=== PATIENT | female | born 1955 ===

== ENCOUNTER 2022-09-10 01:40 | Emergency (ER) | payer OTHER ==
[2022-09-10] MEDS ORDERED: HYDROCODONE/APAP 10/325 TAB ONE (02:31)
[2022-09-10] MEDS ORDERED: TETANUS & DIPHTHERIA TOX,ADULT 0.5 ML VIAL ONE (02:37)
--- NOTE | 2022-09-10 04:00 | ER ---
Nurse's Notes [facility] Name: Mirlande Tyson Age: 67 yrs Sex: Female : 1955 Arrival Date: 09/10/2022 Time: 01:42 Bed 16 Private MD: Diagnosis: Fall on same level, unspecified;Contusion of left elbow;Contusion of right elbow;Contusion of right knee Presentation: 09/10 01:42 Chief complaint: EMS states: they were toned out for report of pt having fallen out of bb bed while being changed at the skilled nursing [facility], pt did not have LOC but is c/o right knee pain. Care prior to arrival: None. Mechanism of Injury: Fall approximately 2.5 feet. Trauma event details: Injury occurred in the [facility], Injury occurred: in an institution. Injury occurred: September 10, 2022. 01:42 Acuity: ALEXA 3 bb 01:42 Method Of Arrival: EMS: [facility] bb 01:46 Coronavirus screen: At this time, the client does not indicate any symptoms associated bb with coronavirus-19. Ebola Screen: No symptoms or risks identified at this time. Initial Sepsis Screen: Does the patient meet any 2 criteria? No. Patient's initial sepsis screen is negative. Does the patient have a suspected source of infection? No. Patient's initial sepsis screen is negative. Risk Assessment: Do you want to hurt yourself or someone else? Patient reports no desire to harm self or others. Onset of symptoms was September 10, 2022. Triage Assessment: 02:00 General: Appears in no apparent distress. Behavior is appropriate for age. ke1 Trauma Activation: Physician: ED Physician; Name: vannessa; Notified At: 01:40; Arrived At: Physician: General Surgeon; Name: ; Notified At: 01:40; Arrived At: Physician: Radiology; Name: ; Notified At: 01:40; Arrived At: Physician: Respiratory; Name: ; Notified At: 01:40; Arrived At: Physician: Lab; Name: ; Notified At: 01:40; Arrived At: Historical: - Allergies: 01:46 Cephalexin; bb 01:46 Codeine; bb 01:46 PENICILLINS; bb 01:46 Prochlorperazine; bb - Home Meds: 01:52 Aricept Oral [Active]; Artificial Tears Opht [Active]; benztropine Oral [Active]; bb Cymbalta oral [Active]; Docusate Sodium Oral [Active]; Aspirin EC Oral [Active]; Farxiga oral [Active]; Ferrous Sulfate Oral [Active]; fluticasone propionate nasal [Active]; Ibuprofen Oral [Active]; latanoprost ophthalmic (eye) [Active]; Magnesium Oxide Oral [Active]; meloxicam oral [Active]; Metformin Oral [Active]; Multiple Vitamins oral [Active]; Namenda oral [Active]; [place] Oral [Active]; Risperdal Oral [Active]; Simethicone Oral [Active]; Spironolactone Oral [Active]; Sumatriptan Sub-Q [Active]; Topamax Oral [Active]; Tramadol Oral [Active]; Trazodone Oral [Active]; zinc lozenge [Active]; - PMHx: 01:46 Alzheimers; Anemia; Anxiety; Chronic pain; Dementia; Depression; Diabetes - IDDM; GERD; bb Hypertension; lymphedema; Renal Disease; Schizophrenia; - Immunization history: Last tetanus immunization: unknown. - Social history:: Smoking status: Patient denies any tobacco usage or history of. - Family history:: not pertinent. Screenin:42 Abuse screen: Denies threats or abuse. Tuberculosis screening: No symptoms or risk bb factors identified. 02:00 Nutritional screening: No deficits noted. Fall Risk Fall in past 12 months (25 points). ke1 No secondary diagnosis (0 pts). No IV (0 pts). Ambulatory Aid- None/Bed Rest/Nurse Assist (0 pts). Gait- Normal/Bed Rest/Wheelchair (0 pts) Mental Status- Oriented to own ability (0 pts). Total Rothman Fall Scale indicates Low Risk Score (25-44 pts). Fall prevention measures have been instituted. Side Rails Up X 2 Frequent Obs/Assesments occuring. Primary Survey: 01:42 NO uncontrolled hemorrhage observed. A: The client is awake and alert. The airway is bb patent. Breathing/Chest: Spontaneous respiratory effort, equal unlabored respirations, breath sounds clear bilaterally, regular pattern, symmetrical chest rise and fall. Circulation: No external hemorrhage present. Regular and strong central pulse, skin warm/dry/normal color. Disability Pupils are equal, round, reactive to light and accommodation. Exposure/Environment: All clothing and personal items were removed. Forensic evidence collection is not deemed to be indicated at this time. Items placed in patient belonging bag. 02:00 Reassessment Breathing: Respiratory effort Spontaneous Unlabored Breath sounds Clear ke1 Respiratory pattern Regular. Secondary Survey: 01:42 HEENT: No deficits noted. Gastrointestinal: No deficits noted. : No deficits noted. bb Musculoskeletal: Reports pain in right knee. Assessment: 02:00 Pain: Complains of pain in R knee Pain currently is 6 out of 10 on a pain scale. at ke1 worst was 6 out of 10 on a pain scale. level that patient reports is acceptable is 1 out of 10 on a pain scale. 04:13 Reassessment: called skilled nursing, no answer. ke1 04:23 Reassessment: report given to nurse ghosh, asking us to take care of transport, I asked ke1 to speak to a charge nurse, i was put on hold for about 20 mn. 04:42 Reassessment: intermediate called back and they will provide transportation ETA 30 mn ke1 to an hour. Vital Signs: 01:42 BP 173 / 85; Pulse 77; Resp 16 S; Pulse Ox 99% on R/A; Weight 113.4 kg (R); Height 5 bb ft. 7 in. (170.18 cm) (R); Pain 10/10; 02:57 BP 133 / 54; Pulse 71; Resp 16; Temp 97.8; Pulse Ox 96% on R/A; Pain 2/10; ke1 03:13 Pain 0/10; ke1 04:12 BP 128 / 52; Pulse 71; Resp 17; Temp 97.6; Pulse Ox 96% ; Pain 0/10; ke1 01:42 Body Mass Index 39.16 (113.40 kg, 170.18 cm) bb August Coma Score: 01:42 Eye Response: spontaneous(4). Verbal Response: oriented(5). Motor Response: obeys bb commands(6). Total: 15. Trauma Score (Adult): 01:42 Eye Response: spontaneous(1); Verbal Response: oriented(1); Motor Response: obeys bb commands(2); Systolic BP: > 89 mm Hg(4); Respiratory Rate: 10 to 29 per min(4); Ailey Score: 15; Trauma Score: 12 ED Course: 01:42 Patient arrived in ED. bb 01:42 Jordy Benito MD is Attending Physician. rt 01:42 Patient has correct armband on for positive identification. Bed in low position. Call bb light in reach. Side rails up X 1. 01:42 Patient maintains SpO2 saturation greater than 95% on room air. bb 01:44 Triage completed. bb 01:46 Patient placed in an exam room, on a stretcher, on pulse oximetry. bb 01:50 De Sharp, HERNÁN is Primary Nurse. ke1 02:00 Thermoregulation: warm blanket given to patient. ke1 02:49 Elbow Left 3 View XRAY In Process Unspecified. EDMS 02:49 Elbow Right 3 View XRAY In Process Unspecified. EDMS 02:49 Knee Right 3 View XRAY In Process Unspecified. EDMS 06:15 No provider procedures requiring assistance completed. ke1 07:02 Patient did not have IV access during this emergency room visit. ke1 Administered Medications: 02:30 Drug: Josephine (HYDROcodone-acetaminophen) 10 mg-325 mg 1 tabs Route: PO; ke1 03:13 Follow up: Pain 0/10 Adult ke1 02:40 Drug: Tetanus-Diphtheria Toxoid Adult 0.5 ml {Preparer Samples And Repairs: [employer]. Exp: ke1 03/09/2024. Lot #: [id number]. } Route: IM; Site: left deltoid; 03:13 Follow up: Response: No adverse reaction ke1 Medication: 03:00 Vaccine Information Statement (VIS) provided today. Questions and/or concerns ke1 addressed. VIS edition date: September 10, 2022. Intake: 06:16 PO: 0ml; Total: 0ml. ke1 Output: 06:16 Urine: 0ml; Total: 0ml. ke1 Outcome: 03:59 Discharge ordered by . rt 06:16 due to transportation back to nursing homePatient's length of stay extended due to ke1 06:54 Discharged to skilled nursing. Report called to davina ke1 07:02 Condition: good ke1 07:02 Discharge instructions given to patient, EMS, [facility] 07:02 Patient left the ED. ke1 Signatures: Dispatcher [employer] Urvashi Guzman RN RN bb De Sharp RN RN ke1 Jordy Benito MD MD rt
--- NOTE | 2022-09-10 04:00 | EDPHYS ---
Physician Documentation [facility] Name: Mirlande Tyson Age: 67 yrs Sex: Female : 1955 Arrival Date: 09/10/2022 Time: 01:42 Bed 16 Private MD: ED Physician Jordy Benito HPI: 09/10 02:04 This 67 yrs old Female presents to ER via EMS with complaints of Fall Injury. rt 02:04 Details of fall: The patient fell from a supine position, out of bed. Onset: The rt symptoms/episode began/occurred just prior to arrival. Severity of symptoms: At their worst the symptoms were mild. Patient presents to the ED from custodial with mechanical fall while they were changing the patient, she actually rolled out of bed. She landed onto both of her elbows as well as her right knee. She denies hitting her head or having other injuries. She reports skin tears to the elbows, no other lacerations. Pain is aching nature, nonradiating, no other aggravating alleviating factors.. Historical: - Allergies: 01:46 Cephalexin; bb 01:46 Codeine; bb 01:46 PENICILLINS; bb 01:46 Prochlorperazine; bb - Home Meds: 01:52 Aricept Oral [Active]; Artificial Tears Opht [Active]; benztropine Oral [Active]; bb Cymbalta oral [Active]; Docusate Sodium Oral [Active]; Aspirin EC Oral [Active]; Farxiga oral [Active]; Ferrous Sulfate Oral [Active]; fluticasone propionate nasal [Active]; Ibuprofen Oral [Active]; latanoprost ophthalmic (eye) [Active]; Magnesium Oxide Oral [Active]; meloxicam oral [Active]; Metformin Oral [Active]; Multiple Vitamins oral [Active]; Namenda oral [Active]; [place] Oral [Active]; Risperdal Oral [Active]; Simethicone Oral [Active]; Spironolactone Oral [Active]; Sumatriptan Sub-Q [Active]; Topamax Oral [Active]; Tramadol Oral [Active]; Trazodone Oral [Active]; zinc lozenge [Active]; - PMHx: 01:46 Alzheimers; Anemia; Anxiety; Chronic pain; Dementia; Depression; Diabetes - IDDM; GERD; bb Hypertension; lymphedema; Renal Disease; Schizophrenia; - Immunization history: Last tetanus immunization: unknown. - Social history:: Smoking status: Patient denies any tobacco usage or history of. - Family history:: not pertinent. ROS: 02:04 Constitutional: Negative for fever, chills, and weight loss, Eyes: Negative for injury, rt pain, redness, and discharge, Neck: Negative for injury, pain, and swelling, Cardiovascular: Negative for chest pain, palpitations, and edema, Respiratory: Negative for shortness of breath, cough, wheezing, and pleuritic chest pain, Abdomen/GI: Negative for abdominal pain, nausea, vomiting, diarrhea, and constipation, Back: Negative for injury and pain, Skin: Negative for injury, rash, and discoloration, Neuro: Negative for headache, weakness, numbness, tingling, and seizure, Psych: Negative for depression, anxiety, suicide ideation, homicidal ideation, and hallucinations. 02:04 MS/extremity: Positive for Injury, bruising. Exam: 02:04 Constitutional: This is a well developed, well nourished patient who is awake, alert, rt and in no acute distress. Head/Face: Normocephalic, atraumatic. Eyes: Pupils equal round and reactive to light, extra-ocular motions intact. Lids and lashes normal. Conjunctiva and sclera are non-icteric and not injected. Cornea within normal limits. Periorbital areas with no swelling, redness, or edema. Neck: Trachea midline, no thyromegaly or masses palpated, and no cervical lymphadenopathy. Supple, full range of motion without nuchal rigidity, or vertebral point tenderness. No Meningismus. Chest/axilla: Normal chest wall appearance and motion. Nontender with no deformity. No lesions are appreciated. Cardiovascular: Regular rate and rhythm with a normal S1 and S2. No gallops, murmurs, or rubs. Normal PMI, no JVD. No pulse deficits. Respiratory: Lungs have equal breath sounds bilaterally, clear to auscultation and percussion. No rales, rhonchi or wheezes noted. No increased work of breathing, no retractions or nasal flaring. Abdomen/GI: Soft, non-tender, with normal bowel sounds. No distension or tympany. No guarding or rebound. No evidence of tenderness throughout. Skin: Warm, dry with normal turgor. Normal color with no rashes, no lesions, and no evidence of cellulitis. Neuro: Awake and alert, GCS 15, oriented to person, place, time, and situation. Cranial nerves II-XII grossly intact. Motor strength 5/5 in all extremities. Sensory grossly intact. Cerebellar exam normal. Normal gait. Psych: Awake, alert, with orientation to person, place and time. Behavior, mood, and affect are within normal limits. 02:04 Musculoskeletal/extremity: Skin tear to the right elbow, abrasion to the left elbow, mild tenderness diffusely on both, forage of motion, no swelling. There is moderate swelling as well as bruising to the right knee with tenderness overlying the patella. Pulse, motor, sensation intact.. Vital Signs: 01:42 BP 173 / 85; Pulse 77; Resp 16 S; Pulse Ox 99% on R/A; Weight 113.4 kg (R); Height 5 bb ft. 7 in. (170.18 cm) (R); Pain 10/10; 02:57 BP 133 / 54; Pulse 71; Resp 16; Temp 97.8; Pulse Ox 96% on R/A; Pain 2/10; ke1 03:13 Pain 0/10; ke1 04:12 BP 128 / 52; Pulse 71; Resp 17; Temp 97.6; Pulse Ox 96% ; Pain 0/10; ke1 01:42 Body Mass Index 39.16 (113.40 kg, 170.18 cm) bb [place] Coma Score: 01:42 Eye Response: spontaneous(4). Verbal Response: oriented(5). Motor Response: obeys bb commands(6). Total: 15. Trauma Score (Adult): 01:42 Eye Response: spontaneous(1); Verbal Response: oriented(1); Motor Response: obeys bb commands(2); Systolic BP: > 89 mm Hg(4); Respiratory Rate: 10 to 29 per min(4); August Score: 15; Trauma Score: 12 MDM: 01:49 Patient medically screened. rt 03:59 Differential diagnosis: abrasion, contusion, fracture, laceration. Data reviewed: vital rt signs, nurses notes, radiologic studies. ED course: Patient presents to the ED with mechanical fall at the custodial. She has contusions as well as a skin tear to the bilateral elbows, contusion to the right knee. X-rays are unremarkable. The skin tears do not require any primary repair. No further interventions are indicated at this time. Patient is stable for outpatient care, return precautions discussed.. 09/10 01:53 Order name: Elbow Left 3 View XRAY rt 09/10 01:53 Order name: Elbow Right 3 View XRAY rt 09/10 01:53 Order name: Knee Right 3 View XRAY rt Administered Medications: 02:30 Drug: [place] (HYDROcodone-acetaminophen) 10 mg-325 mg 1 tabs Route: PO; ke1 03:13 Follow up: Pain 0/10 Adult ke1 02:40 Drug: Tetanus-Diphtheria Toxoid Adult 0.5 ml {Operations Support Specialist: [employer]. Exp: ke1 03/09/2024. Lot #: [id number]. } Route: IM; Site: left deltoid; 03:13 Follow up: Response: No adverse reaction ke1 Disposition Summary: 09/10/22 03:59 Discharge Ordered Location: Home rt Problem: new rt Symptoms: are unchanged rt Condition: Stable rt Diagnosis - Fall on same level, unspecified rt - Contusion of left elbow rt - Contusion of right elbow rt - Contusion of right knee rt Followup: rt - With: Private Physician - When: 2 - 3 days - Reason: Discharge Instructions: - Discharge Summary Sheet rt - Contusion rt - Fall Prevention in the Home, Adult rt Forms: - Medication Reconciliation Form rt - Thank You Letter rt - Antibiotic Education rt - Prescription Opioid Use rt Signatures: Dispatcher [employer] Urvashi Guzman RN RN bb Ebrottie, Kouassi, RN RN ke1 Jordy Benito MD MD rt
[2022-09-10 07:20] VITALS: O2SAT 96
[2022-09-10 07:22] VITALS: BP 128/52; TEMP 97.6
--- NOTE | 2022-09-10 12:41 | RAD REPORT ---
EXAM DESCRIPTION: RAD - Elbow Right 3 View - 09/10/2022 2:47 am CLINICAL HISTORY: PAIN COMPARISON: None. TECHNIQUE: Right Elbow 3 Views FINDINGS: No fracture or dislocation. No significant sclerotic/lytic bone lesion. Small osteophyte at right ulnar coronoid. Joint spaces unremarkable. Vascular calcifications in proximal right forearm. IMPRESSION: Unremarkable Right Elbow Radiographs. Electronically signed by: Bryce Duarte MD 09/10/2022 3:29 AM SAP PORTAL ARCHITECT Due to temporary technical issues with the PACS/Fluency reporting system, reports are being signed by the in house radiologists without review as a courtesy to insure prompt reporting. The interpreting radiologist is fully responsible for the content of the report.
--- NOTE | 2022-09-10 12:46 | RAD REPORT ---
EXAM DESCRIPTION: RAD - Elbow Left 3 View - 09/10/2022 2:47 am CLINICAL HISTORY: PAIN TECHNIQUE: Frontal, lateral and oblique views of the left elbow. COMPARISON: No relevant prior studies available. FINDINGS: Bones/joints: No acute or remote fracture. No osseous destruction or erosion. No caitlyn nt effusion. No dislocation. Soft tissues: Unremarkable. Vasculature: Atherosclerotic disease. IMPRESSION: No acute abnormality. Electronically signed by: Valarie Lindqusit MD 09/10/2022 3:18 AM CHIEF RESERVOIR ENGINEERING Due to temporary technical issues with the PACS/Fluency reporting system, reports are being signed by the in house radiologists without review as a courtesy to insure prompt reporting. The interpreting radiologist is fully responsible for the content of the report.
--- NOTE | 2022-09-10 13:03 | RAD REPORT ---
EXAM DESCRIPTION: RAD - Knee Right 3 View - 09/10/2022 2:47 am CLINICAL HISTORY: PAIN TECHNIQUE: Three views of the right knee. COMPARISON: No relevant prior studies available. FINDINGS: Bones/joints: Moderate to severe tricompartmental degenerative changes most pronounced a t the patellofemoral articulation. No appreciable joint effusion. No acute fracture. No disloca tion. Soft tissues: Mild soft tissue edema. IMPRESSION: Mild soft tissue edema. No acute osseous abnormality. Electronically signed by: Valarie Lindquist MD 09/10/2022 3:30 AM HEDIS SPECIALIST Due to temporary technical issues with the PACS/Fluency reporting system, reports are being signed by the in house radiologists without review as a courtesy to insure prompt reporting. The interpreting radiologist is fully responsible for the content of the report.
== END 2022-09-10 07:02 | disposition home or self-care (01) ==
LOC: ER 01:40
DX: S50.02XA Contusion of left elbow, initial encounter (principal); S50.01XA Contusion of right elbow, initial encounter; S80.01XA Contusion of right knee, initial encounter; W18.30XA Fall on same level, unspecified, initial encounter; Z23 Encounter for immunization; G30.9 Alzheimer's disease, unspecified; F02.80 Dementia in other diseases classified elsewhere, unspecified severity, without behavioral disturbance, psychotic disturbance, mood disturbance, and anxiety; I10 Essential (primary) hypertension; Z88.0 Allergy status to penicillin; Z88.1 Allergy status to other antibiotic agents; Z88.5 Allergy status to narcotic agent; Z88.8 Allergy status to other drugs, medicaments and biological substances
CPT/HCPCS: 90471; 90714; 99284

== ENCOUNTER 2024-06-20 21:25 | Observation (INO) | payer OTHER ==
--- NOTE | 2024-06-20 22:03 | RAD REPORT ---
EXAM DESCRIPTION: Lew Single View06/20/2024 9:56 pm CLINICAL HISTORY: Confusion COMPARISON: 2017 FINDINGS: The lungs appear clear of acute infiltrate. The heart appears borderline enlarged. Central venous catheter in place IMPRESSION: No acute abnormalities displayed
[2024-06-20] MEDS ORDERED: NA CHLORIDE 0.9% 1,000 ML ONE (22:17)
--- NOTE | 2024-06-20 22:38 | RAD REPORT ---
EXAM DESCRIPTION: CT - Head Brain Wo Cont - 06/20/2024 10:23 pm CLINICAL HISTORY: Alteration of awareness/confusion COMPARISON: 2017 TECHNIQUE: Computed axial tomography of the head was obtained. IV contrast was not requested. All CT scans are performed using dose optimization technique as appropriate and may include automated exposure control or mA/KV adjustment according to patient size. FINDINGS: An intracranial bleed is not seen The ventricles are normal in caliber No extra-axial fluid collection is noted. Mild low-density areas within periventricular, deep and subcortical white matter likely represent isc hemic changes secondary to small vessel disease. Fluid within the sinuses/ mastoids is not seen. IMPRESSION: No acute intracranial abnormality is seen If patient's symptoms persist MRI of the brain would be recommended
[2024-06-20 23:22] LABS: Absolute Basophils 0.1 K/uL (0-0.5); Absolute Eosinophils 0.1 K/uL (0-0.5); Absolute Lymphocytes (CBC) 2.4 K/uL (0.7-4.9); Absolute Monocytes 0.5 K/uL (0.1-1.3); Absolute Neutrophil 6.3 K/uL (1.8-8.0); Basophils % 0.6 % (0-1.3); Eosinophils % 1.5 % (0-4.4); Hematocrit 38.5 % (36.0-45.0); Hemoglobin 12.9 g/dL (12.0-15.0); Lymphocytes % 25.7 % (15.3-44.8); MCH 31.4 pg (27.0-35.0); MCHC 33.5 g/dL (32.0-36.0); MCV 93.7 fL (80-100); MPV 8.1 fL (7.6-11.3); Monocytes % 5.2 % (3.3-12.3); Nucleated Red Blood Cells % 0.1 % (0-0); Platelets 182 thou/uL (152-406); RBC Red Blood Cell Count 4.11 M/uL (3.86-4.86); Red Cell Distribution Width 14.4 % (12.1-15.2)
[2024-06-20 23:49] LABS: ALT/SGPT 19 U/L (13-56); Albumin 3.3 g/dL (3.4-5.0); Albumin/Globulin Ratio 0.9 (1.1-1.8); Alkaline Phosphatase 90 U/L (45-117); Anion Gap 12.4 mEq/L (5.0-15.0); BUN Blood Urea Nitrogen 26 mg/dL (7-18); Bicarbonate 21 mEq/L (21-32); Bilirubin Total 0.2 mg/dL (0.2-1.0); Globulin 3.7 g/dL (2.3-3.5); Glomerular Filtration Rate 36 ml/min (=/>90); Glucose Level 107 mg/dL (74-106); Sodium Level 136 mEq/L (136-145); Troponin High Sensitivity 13.2 pg/mL (<58.9)
[2024-06-20 23:54] LABS: AST/SGOT 14 U/L (15-37); Bilirubin Direct < 0.2 mg/dL (0-0.2); Magnesium 2.3 mg/dL (1.6-2.4); Potassium 4.4 mEq/L (3.5-5.1)
[2024-06-21 00:11] LABS: Specific Gravity 1.008 (1.005-1.030); Sqamous Epithelial None Seen /HPF (None Seen); Urine Bacteria <20 /HPF (<20); Urine Bilirubin NEGATIVE (Negative); Urine Blood Negative (Negative); Urine Clarity Turbid (Clear); Urine Color Colorless (Yellow); Urine Culture Reflex Order NOT NEEDED; Urine Glucose 1+ (Negative); Urine Ketones NEGATIVE (Negative); Urine Micro Reflex YN NO BILL MICROSCOPIC; Urine Mucus Slight /HPF (None Seen); Urine Nitrite NEGATIVE (Negative); Urine Protein NEGATIVE (Negative); Urine RBC <5 /HPF (None Seen); Urine Urobilinogen Normal (Normal); Urine WBC <5 /HPF (<5); Urine pH 5.5 (5.0-7.0)
[2024-06-21] MEDS ORDERED: ACETAMINOPHEN 500 MG TAB PO PRN (01:56)
--- NOTE | 2024-06-21 01:57 | EDPHYS ---
Physician Documentation [facility] Name: Mirlande Tyson Age: 69 yrs Sex: Female : 1955 Arrival Date: 06/20/2024 Time: 21:25 Bed 14 Private MD: ED Physician Jordy Benito HPI: 06/20 21:50 This 69 yrs old Unknown Female presents to ER via Unassigned with complaints of Altered rt Mental Status. 21:50 Patient with history of dementia presents to the ED with reported altered mental status rt from retirement. Unclear how long this has been present for. The patient is unable to provide meaningful history. Symptoms are moderate in severity, no other aggravating elevating factors.. Historical: - Allergies: 21:59 Cephalexin; rg5 21:59 Codeine; rg5 21:59 PENICILLINS; rg5 21:59 Prochlorperazine; rg5 - Home Meds: 06/21 00:51 Magnesium Oxide Oral [Active]; Metformin Oral [Active]; latanoprost ophthalmic (eye) rg5 [Active]; [place] Oral [Active]; Risperdal Oral [Active]; Multiple Vitamins Oral [Active]; Namenda Oral [Active]; Trazodone Oral [Active]; - PMHx: 06/20 21:59 Dementia; Depression; Diabetes - IDDM; GERD; Hypertension; lymphedema; Schizophrenia; rg5 Alzheimers; Anemia; Anxiety; Renal Disease; Chronic pain; - Immunization history:: Adult Immunizations up to date. - Infectious Disease History:: Denies. - Family history:: not pertinent. - Social history:: Smoking status: unknown. ROS: 21:50 Unable to obtain ROS due to baseline dementia, rt Exam: 21:50 Constitutional: This is a well developed, well nourished patient who is awake, alert, rt and in no acute distress. Head/Face: Normocephalic, atraumatic. Chest/axilla: Normal chest wall appearance and motion. Nontender with no deformity. No lesions are appreciated. Cardiovascular: Regular rate and rhythm with a normal S1 and S2. No gallops, murmurs, or rubs. Normal PMI, no JVD. No pulse deficits. Respiratory: Lungs have equal breath sounds bilaterally, clear to auscultation and percussion. No rales, rhonchi or wheezes noted. No increased work of breathing, no retractions or nasal flaring. Abdomen/GI: Soft, non-tender, with normal bowel sounds. No distension or tympany. No guarding or rebound. No evidence of tenderness throughout. Skin: Warm, dry with normal turgor. Normal color with no rashes, no lesions, and no evidence of cellulitis. MS/ Extremity: Pulses equal, no cyanosis. Neurovascular intact. Full, normal range of motion. 21:50 ENT: Dry mucous membranes. 21:50 Neuro: Withdrawn, no slurred speech, moves all 4 extremities equally, 22:49 ECG was reviewed by the Attending Physician. rt Vital Signs: 21:53 BP 133 / 58; Pulse 64; Resp 17; Temp 97.9; Pulse Ox 96% on R/A; Weight 101.6 kg; Height rg5 5 ft. 7 in. ; Pain 5/10; 22:00 BP 133 / 58; Pulse 64; Resp 18; Temp 97.9(O); Pulse Ox 96% on R/A; Weight 101.6 kg; rg5 Height 5 ft. 7 in. ; Pain 5/10; 23:30 BP 130 / 61; Pulse 69; Resp 17; Pulse Ox 96% on R/A; Pain 0/10; [facility] 06/21 01:01 BP 112 / 53; Pulse 65; Resp 17; Temp 98; Pulse Ox 96% on R/A; Pain 0/10; [facility] 02:26 BP 105 / 51; Pulse 65; Resp 17; Pulse Ox 96% on R/A; Pain 0/10; [facility] 06/20 22:00 Body Mass Index 35.08 (101.60 kg, 170.18 cm) [facility] 06/20 21:53 Pain Scale: Adult [facility] 22:00 Pain Scale: Adult [facility] 23:30 Pain Scale: Adult [facility] 06/21 01:01 Pain Scale: Adult [facility] 02:26 Pain Scale: Adult [facility] MDM: 06/20 21:42 Patient medically screened. rt 06/21 02:28 Differential Diagnosis: Volume depletion, dementia, polypharmacy, intracranial rt hemorrhage, UTI, electrolyte disturbance. Data reviewed: vital signs, nurses notes, lab test result(s), EKG, radiologic studies. Consideration of Admission/Observation Patient was admitted/placed on observation. Management of patient was discussed with the following: Hospitalist: Agrees to admit. I considered the following discharge prescriptions or medication management in the emergency department Medications were administered in the Emergency Department. See MAR. Independent interpretation of the following test(s) in the Emergency Department CT Scan: My interpretation is No intracranial hemorrhage seen on my interpretation of CT scan images. Care significantly affected by the following chronic conditions: Diabetes. Counseling: I had a detailed discussion with the patient and/or guardian regarding the historical points, exam findings, and any diagnostic results supporting the discharge/admit diagnosis, lab results, radiology results, the need for further work-up and treatment in the hospital. Response to treatment: There is no appreciated change of the patient's symptoms at this time. 06/20 21:46 Order name: Basic Metabolic Panel; Complete Time: 23:57 rt 06/20 21:46 Order name: CBC with Diff; Complete Time: 23:57 rt 06/20 21:46 Order name: LFT's; Complete Time: 23:57 rt 06/20 21:46 Order name: Magnesium; Complete Time: 23:57 rt 06/20 21:46 Order name: Troponin HS; Complete Time: 23:57 rt 06/20 21:46 Order name: UAM; Complete Time: 00:12 rt 06/21 02:00 Order name: Magnesium EDMS 06/21 02:00 Order name: Phosphorus EDMS 06/21 02:00 Order name: Urinalysis w/ reflexes EDMS 06/21 02:00 Order name: Basic Metabolic Panel EDMS 06/21 02:00 Order name: Basic Metabolic Panel EDMS 06/21 02:00 Order name: CBC with Automated Diff EDMS 06/21 02:00 Order name: CBC with Automated Diff EDMS 06/21 02:00 Order name: Protime (+INR) EDMS 06/21 02:00 Order name: Protime (+INR) EDMS 06/21 02:00 Order name: PTT, Activated Partial Thromb EDMS 06/21 02:00 Order name: PTT, Activated Partial Thromb EDMS 06/21 03:45 Order name: Urine Drug Screen EDMS 06/20 21:46 Order name: XRAY Chest (1 view); Complete Time: 22:04 rt 06/20 21:46 Order name: CT Head Brain wo Cont; Complete Time: 22:46 rt 06/20 21:46 Order name: Cardiac monitoring; Complete Time: 22:07 rt 06/20 21:46 Order name: EKG - Nurse/Tech; Complete Time: 22:28 rt 06/20 21:46 Order name: IV Saline Lock; Complete Time: 23:20 rt 06/20 21:46 Order name: Labs collected and sent; Complete Time: 23:20 rt 06/20 21:46 Order name: O2 Per Protocol; Complete Time: 22:07 rt 06/20 21:46 Order name: O2 Sat Monitoring; Complete Time: 22:08 rt 06/20 21:46 Order name: Straight Cath; Complete Time: 23:48 rt EC/14 22:49 Rate is 60 beats/min. Rhythm is regular, Normal Sinus Rhythm with No ectopy, lafb. Left rt axis deviation noted. MI interval is normal. QRS interval is normal. QT interval is normal. No Q waves. Administered Medications: 23:19 Drug: NS 0.9% IV 1000 ml IV at 1 bolus Per protocol; 1000 mL bolus Route: IV; Rate: 1 rg5 bolus; Site: right antecubital; 06/21 02:28 Follow up: IV Status: Completed infusion; IV Intake: 1000ml rg5 Disposition Summary: 06/21/24 01:56 Hospitalization Ordered Notes: Hospitalization Status: Observation rt Provider: Prince Logan rt [facility] rt Condition: Fair rt Problem: new rt Symptoms: are unchanged rt Bed/Room Type: Standard rt Room Assignment: 404(06/21/24 04:06) cg Diagnosis - Altered mental status rt - Generalized weakness rt Forms: - Medication Reconciliation Form rt - SBAR form rt - Leadership Thank You Letter rt Signatures: Dispatcher [employer] Ofelia Geller RN RN cg Jordy Benito MD MD rt Wilfred Clements RN RN rg5 Corrections: (The following items were deleted from the chart) 06/20 21:47 21:47 BASIC METABOLIC PANEL+C.LAB.BRZ ordered. EDMS EDMS 21:47 21:47 CBC+H.LAB.BRZ ordered. EDMS EDMS 21:47 21:47 HEPATIC FUNCTION+C.LAB.BRZ ordered. EDMS EDMS 21:47 21:47 MAGNESIUM+C.LAB.BRZ ordered. EDMS EDMS 21:47 21:47 Troponin High Sensitivity+C.LAB.BRZ ordered. EDMS EDMS 21:47 Urinalysis W/Microscopic+U.LAB.BRZ ordered. EDMS EDMS 21:47 Chest Single View+RAD.RAD.BRZ ordered. EDMS EDMS 21:47 Head Brain Wo Cont+CT.RAD.BRZ ordered. EDMS EDMS 06/21 01:01 00:59 PMHx: Diabetes mellitus; rg5 rg5 04:06 01:56 rt cg
--- NOTE | 2024-06-21 01:57 | ER ---
Nurse's Notes [facility] Name: Mirlande Tyson Age: 69 yrs Sex: Female : 1955 Arrival Date: 06/20/2024 Time: 21:25 Bed 14 Private MD: Diagnosis: Altered mental status;Generalized weakness Presentation: 06/20 21:53 Chief complaint: EMS states: she was not feeling better and confused. Coronavirus rg5 screen: Client denies travel out of the [place] in the last 14 days. Ebola Screen: Patient negative for fever greater than or equal to 101.5 degrees Fahrenheit, and additional compatible Ebola Virus Disease symptoms. Initial Sepsis Screen: Does the patient meet any 2 criteria? No. Patient's initial sepsis screen is negative. Does the patient have a suspected source of infection? No. Patient's initial sepsis screen is negative. Risk Assessment: Do you want to hurt yourself or someone else? Patient reports no desire to harm self or others. Onset of symptoms was June 20, 2024. 21:53 Method Of Arrival: EMS: [facility] rg5 21:53 Acuity: ALEXA 3 rg5 Triage Assessment: 22:00 General: Appears in no apparent distress. Behavior is calm, cooperative, flat. Pain: rg5 Complains of pain in all over the body Pain currently is 5 out of 10 on a pain scale. Quality of pain is described as aching. EENT: No deficits noted. Neuro: Level of Consciousness is awake, confused. Cardiovascular: Denies chest pain, Patient's skin is warm and dry. Respiratory: Airway is patent Trachea midline Respiratory effort is even, unlabored, Respiratory pattern is regular, symmetrical. GI: Abdomen is round non-distended, Bowel sounds present in left lower quadrant. : No signs and/or symptoms were reported regarding the genitourinary system. Derm: Skin is fragile, Skin is dry, Skin is normal, Skin temperature is warm. Musculoskeletal: Range of motion: intact in all extremities. Historical: - Allergies: 21:59 Cephalexin; rg5 21:59 Codeine; rg5 21:59 PENICILLINS; rg5 21:59 Prochlorperazine; rg5 - Home Meds: 06/21 00:51 Magnesium Oxide Oral [Active]; Metformin Oral [Active]; latanoprost ophthalmic (eye) rg5 [Active]; [place] Oral [Active]; Risperdal Oral [Active]; Multiple Vitamins Oral [Active]; Namenda Oral [Active]; Trazodone Oral [Active]; - PMHx: 06/20 21:59 Dementia; Depression; Diabetes - IDDM; GERD; Hypertension; lymphedema; Schizophrenia; rg5 Alzheimers; Anemia; Anxiety; Renal Disease; Chronic pain; - Immunization history:: Adult Immunizations up to date. - Infectious Disease History:: Denies. - Family history:: not pertinent. - Social history:: Smoking status: unknown. Screenin:04 [facility] ED Fall Risk Assessment (Adult) History of falling in the last 3 months, rg5 including since admission No falls in past 3 months (0 pts) Confusion or Disorientation Yes (5 pts) Intoxicated or Sedated No (0 pts) Impaired Gait Yes (1 pt) Mobility Assist Device Used Yes (1 pt) Altered Elimination No (0 pt) Score/Fall Risk Level 3 or more points = High Risk Oriented to surroundings, Maintained a safe environment, Educated pt \T\ family on fall prevention, incl call for assistance when getting out of bed, Hourly rounding (assess needs \T\ fall precautionary measures) done. Abuse screen: Denies threats or abuse. Nutritional screening: No deficits noted. Tuberculosis screening: No symptoms or risk factors identified. Assessment: 22:04 Reassessment: see triage assessment. rg5 23:15 Reassessment: No changes from previously documented assessment. Patient and/or family rg5 updated on plan of care and expected duration. Pain level reassessed. Patient is alert, oriented x 3, equal unlabored respirations, skin warm/dry/pink. 06/21 00:04 Reassessment: No changes from previously documented assessment. Patient and/or family rg5 updated on plan of care and expected duration. Pain level reassessed. Patient is alert, oriented x 3, equal unlabored respirations, skin warm/dry/pink. 01:01 Reassessment: No changes from previously documented assessment. Patient and/or family rg5 updated on plan of care and expected duration. Pain level reassessed. Patient is alert, oriented x 3, equal unlabored respirations, skin warm/dry/pink. 02:27 Reassessment: No changes from previously documented assessment. Patient and/or family rg5 updated on plan of care and expected duration. Pain level reassessed. Patient is alert, oriented x 3, equal unlabored respirations, skin warm/dry/pink. Vital Signs: 06/20 21:53 BP 133 / 58; Pulse 64; Resp 17; Temp 97.9; Pulse Ox 96% on R/A; Weight 101.6 kg; Height rg5 5 ft. 7 in. ; Pain 5/10; 22:00 BP 133 / 58; Pulse 64; Resp 18; Temp 97.9(O); Pulse Ox 96% on R/A; Weight 101.6 kg; rg5 Height 5 ft. 7 in. ; Pain 5/10; 23:30 BP 130 / 61; Pulse 69; Resp 17; Pulse Ox 96% on R/A; Pain 0/10; [facility] 06/21 01:01 BP 112 / 53; Pulse 65; Resp 17; Temp 98; Pulse Ox 96% on R/A; Pain 0/10; rg5 02:26 BP 105 / 51; Pulse 65; Resp 17; Pulse Ox 96% on R/A; Pain 0/10; 5 06/20 22:00 Body Mass Index 35.08 (101.60 kg, 170.18 cm) [facility] 06/20 21:53 Pain Scale: Adult rg5 22:00 Pain Scale: Adult rg5 23:30 Pain Scale: Adult rg5 06/21 01:01 Pain Scale: Adult rg5 02:26 Pain Scale: Adult rg5 ED Course: 06/20 21:37 Patient arrived in ED. gm2 21:42 Jordy Benito MD is Attending Physician. rt 21:50 Missed attempt(s): 20 gauge in right antecubital area. rg5 21:52 Wilfred Clements, RN is Primary Nurse. rg5 21:58 XRAY Chest (1 view) In Process Unspecified. EDMS 21:59 Triage completed. rg5 22:00 Arm band placed on right wrist. EKG completed in triage. Results shown to . rg5 22:04 Patient has correct armband on for positive identification. Fall risk band placed. rg5 Placed in gown. Bed in low position. Call light in reach. Side rails up X2. 22:04 No provider procedures requiring assistance completed. rg5 22:20 EKG done, by ED staff, reviewed by Jordy Benito MD. oe 22:25 CT Head Brain wo Cont In Process Unspecified. EDMS 23:15 Missed attempt(s): 22 gauge in left antecubital area. Bleeding controlled, band aid oe applied, catheter tip intact. 23:20 Inserted saline lock: 22 gauge in right antecubital area, using aseptic technique. oe Blood collected. Flushed with 10 mL NS. 23:30 One-on-one care X 30 minutes. rg5 23:30 Repositioned patient. Cleaned of incontinence. rg5 23:30 Warm blanket given. Verbal reassurance given. rg5 06/21 00:05 Awaiting lab results, Awaiting radiology results. rg5 01:56 Prince Ford MD is Hospitalizing Provider. rt 02:27 Resting quietly. Appears to be sleeping. rg5 03:12 Provided Education on: need for admit. rg5 03:12 Patient admitted, IV remains in place. intact, No redness/swelling at site. rg5 Administered Medications: 06/20 23:19 Drug: NS 0.9% IV 1000 ml IV at 1 bolus Per protocol; 1000 mL bolus Route: IV; Rate: 1 rg5 bolus; Site: right antecubital; 06/21 02:28 Follow up: IV Status: Completed infusion; IV Intake: 1000ml rg5 Medication: 06/20 22:04 VIS not applicable for this client. rg5 Intake: 06/21 02:28 IV: 1000ml; Total: 1000ml. rg5 Outcome: 01:56 Decision to Hospitalize by Provider. rt 03:12 Admitted to ER Hold. Please see [facility] for further documentation. rg5 03:12 Condition: stable 03:12 Instructed on the need for admit, 05:13 Patient left the ED. rg5 Signatures: Dispatcher [employer] EDMS Nolberto Emanuel oe Jordy Benito MD MD rt [facility] Wilfred Clements RN RN rg5 Corrections: (The following items were deleted from the chart) 01:01 00:59 PMHx: Diabetes mellitus; rg5 rg5
--- NOTE | 2024-06-21 02:22 | P.HP ---
Certification for Inpatient Patient admitted to: Observation With expected LOS: <2 Midnights Practitioner: I am a practitioner with admitting privileges, knowledge of patient current condition, hospital course, and medical plan of care. Services: Services provided to patient in accordance with Admission requirements found in Title 42 Section 412.3 of the Code of Federal Regulations Patient History Date of Service: 06/21/24 Reason for admission: altered mental status History of Present Illness: Patient is a 69-year-old female currently in alf resident. She is brought into the ER via EMS for evaluation of altered mental status. Her symptoms are acute as relayed by the sister who was also at bedside. The last time her sister talked to the patient was roughly 1 week ago. She is verbally interactive and appropriate. She usually ambulates with a walker and likes to shop at [employer] on occasions. Due to her altered mental status, it was difficult to obtain history beyond this point. Workup in the ER included chest x-ray, CT head basic and basic labs including urine analysis. All of them were unremarkable. Allergies cephalexin monohydrate [From Keflex] Allergy (Severe, Verified 07/06/15 13:36) Anaphylaxis prochlorperazine edisylate [From Compazine] Allergy (Severe, Verified 07/06/15 13:36) Anaphylaxis prochlorperazine maleate [From Compazine] Allergy (Severe, Verified 07/06/15 13:36) Anaphylaxis cephalexin Allergy (Verified 09/10/14 15:51) Hives/Rash codeine Allergy (Verified 09/10/14 15:51) Hives/Rash Penicillins Allergy (Verified 09/10/14 15:51) Hives/Rash prochlorperazine Allergy (Verified 09/10/14 15:51) Hives/Rash Home Medications: Aspirin 81 mg PO DAILY 09/10/14 Ferrous Sulfate [Feosol] 325 mg PO DAILY 09/10/14 Hypromellose [Artificial Tears] 1 gtt OPTH TID 09/10/14 LORazepam [Ativan*] 0.5 mg PO QID 09/10/14 Quetiapine Fumarate [Seroquel Xr] 400 mg PO BEDTIME 09/10/14 Risperidone [Risperdal] 5 mg PO BEDTIME 09/10/14 Trazodone [Desyrel*] 150 mg PO BEDTIME 09/10/14 Acetaminophen with Codeine [Tylenol with Codeine #3 Tablet] 1 each PO Q4H PRN 07/05/15 Benztropine Mesylate [Cogentin] 2 mg PO BID 07/05/15 Duloxetine [Cymbalta *] 60 mg PO BID 07/05/15 Hydrocodone 10/APAP 325 [[place] 10/325*] 1 tab PO QID 07/05/15 Multivitamin with Minerals [One Daily Plus Minerals] 1 each PO DAILY 07/05/15 Omeprazole Magnesium [Prilosec Otc] 20 mg PO DAILY 07/05/15 Topiramate [Topamax*] 50 mg PO BID 07/05/15 - Past Medical/Surgical History Diabetic: Yes -: Dementia -: senile -: alzheimer's disease -: Schizophrenia -: Lymphedema right arm -: Pain back -: Depression -: gastric sleeve - Family History Mother -: Heart disease, Diabetes, Cancer, Other (see notes) Notes: heart flutter, stents, smoked Father -: Heart disease, Diabetes, Other (see notes) Notes: alcoholic, smoked, alzheimers - Social History Alcohol use: No CD- Drugs: No Caffeine use: Yes Physical Examination - Physical Exam General: Obese, Other (Somnolent) HEENT: Atraumatic, Normocephalic Respiratory: Clear to auscultation bilaterally, Normal air movement Cardiovascular: No edema, Normal pulses, Regular rate/rhythm - Studies Laboratory Data (last 24 hrs) 06/20/24 06/20/24 23:15 23:15 WBC 9.40 Hgb 12.9 Hct 38.5 Plt Count 182 Sodium 136 Potassium 4.4 BUN 26 H Creatinine 1.56 H Glucose 107 H Magnesium 2.3 Total Bilirubin 0.2 AST 14 L ALT 19 Alkaline Phosphatase 90 Assessment and Plan - Problems (Diagnosis) (1) Alzheimer disease Current Visit: No Status: Acute (2) Anemia Onset Date: 07/06/15 Current Visit: No Status: Acute (3) Anxiety Current Visit: No Status: Acute (4) Dementia Current Visit: No Status: Acute (5) Diabetes Current Visit: No Status: Acute (6) HTN (hypertension) Current Visit: No Status: Acute (7) Kidney disease Current Visit: No Status: Acute (8) Lymphedema of arm Current Visit: No Status: Acute - Plan Assessment Patient is a 69-year-old female with a past medical history of Alzheimer's dementia, hypertension, CKD. She presented to the ER for evaluation of altered mental status. She is currently a alf resident. Workup so far has included CT head, chest x-ray, basic labs and urine analysis all of which were unremarkable. Acute encephalopathyof unknown etiology Alzheimer dementia Hypertension Morbid obesity Plan: Will admit under observation with telemetry Will get a formal brain MRI Check ammonia, acetaminophen and salicylate levels Urine drug screen sent as well PT/OT as tolerated Resume rest of home medications upon reconciliation Patient is DNR - Advance Directives Does patient have a Living Will: Yes Does patient have a Durable POA for Healthcare: Yes
[2024-06-21 03:10] VITALS: BMI 35.0
[2024-06-21 03:45] LABS: Barbiturates NEGATIVE (NEGATIVE); Benzodiazepines NEGATIVE (NEGATIVE); Cocaine NEGATIVE (NEGATIVE); METHAMPHETAM NEGATIVE (NEGATIVE); Methadone NEGATIVE (NEGATIVE); Opiates NEGATIVE (NEGATIVE); Phencyclidine NEGATIVE (NEGATIVE); THC Cannibis NEGATIVE (NEGATIVE)
[2024-06-21] MEDS: D5 0.45 NS 1,000 ML IV SCH (06:19)
[2024-06-21] MEDS: ENOXAPARIN 40 MG/0.4 ML SQ SCH (08:35)
[2024-06-21] MEDS: DOCUSATE NA 100 MG CAP PO SCH (08:35)
[2024-06-21] MEDS: ROPINIROLE HCL 0.25 MG TAB PO SCH (08:35)
[2024-06-21] MEDS: MEMANTINE HCL 10 MG TABLET PO SCH (08:36)
[2024-06-21] MEDS: ASPIRIN EC 81 MG TAB PO SCH (08:36)
[2024-06-21] MEDS: MAGNESIUM OXIDE 400 MG TAB PO SCH (08:36)
[2024-06-21] MEDS: TOPIRAMATE 100 MG TAB PO SCH (08:36)
[2024-06-21] MEDS ORDERED: HOME MED 1 EA UNK (Memantine Hcl [Namenda Xr] 28 MG Cap.Spr.24) PO SCH (09:00)
[2024-06-21 09:45] VITALS: O2SAT 99
[2024-06-21 09:55] LABS: Magnesium 2.2 mg/dL (1.6-2.4); Phosphorus 4.1 mg/dL (2.5-4.9)
[2024-06-21 13:11] LABS: Anion Gap 9.2 mEq/L (5.0-15.0); Magnesium 2.3 mg/dL (1.6-2.4); Potassium 4.2 mEq/L (3.5-5.1)
[2024-06-21] MEDS: HYDROCODONE/APAP 5/325 MG TAB PO PRN (13:59)
--- NOTE | 2024-06-21 14:41 | P.PN ---
Date of Service: 06/21/24 Patient is a snf patient of mine. Admitted to the hospitalist service yesterday due to altered mental status. She has a history of schizoprhrenia, dementia. Dm2, htn and ckd stage 3. She was found to have an elevated creatine. Otherwise her work up was negative. Creatine is almost back to baseline this morning. However the patient would like to stay and feels she gets better care. She has not had any outbursts like this in over a year. After talking to her for a few moments she feels it is ok to go home. I will be seeing her in a week. We can recheck her labs at that time. There will be friends and activities and outings with her sister and Delfino. None of that can be done here. [employer] AAO x 2 This is her baseline HEENT ROBLES, EOM, -ve LAD CVS S1, S2, RRR RS LCTA a/p 1. Altered mental status which has resolved 2. acute on chronic renal failure. Which is almost back to baseline 3. dm2 4. htn. Patient is safe to return to [facility].
[2024-06-21 17:16] VITALS: BP 133/62; TEMP 98.1
[2024-06-21] MEDS ORDERED: DONEPEZIL HCL 5 MG TAB PO SCH (21:00)
[2024-06-21] MEDS ORDERED: TRAZODONE 50 MG TABLET PO SCH (21:00)
[2024-06-21] MEDS ORDERED: RISPERIDONE 1 MG TABLET PO SCH (21:00)
[2024-06-21] MEDS ORDERED: LATANOPROST 0.005% 2.5ML OPTH OPTH SCH (21:00)
--- NOTE | 2024-06-22 06:27 | P.DS ---
Admission Date: 06/21/24 Discharge Date: 06/21/24 Disposition: TRANSFER TO [facility] Discharge Condition: GOOD Reason for Admission: altered mental status Brief History of Present Illness: 69yo F, PMH: Alzheimer's dementia, CKD, DM2, hypertension She is brought into the ER via EMS for evaluation of altered mental status. Her symptoms are acute as relayed by the sister who was also at bedside. The last time her sister talked to the patient was roughly 1 week ago. She is verbally interactive and appropriate. She usually ambulates with a walker and likes to shop at [employer] on occasions. Due to her altered mental status, it was difficult to obtain history beyond this point. Workup in the ER included chest x-ray, CT head basic and basic labs including urine analysis. All of them were unremarkable. Hospital Course: Problem List: Altered mentation, improved Alzheimer dementia JORDAN on CKD, resolved NIDDM2 Hypertension Patient was sent to ED from [facility] due to altered mentation - she reportedly was not feeling well, and began crying, and then yelling. In the ED, CT head, Chest x-ray, labwork was all rather unremarkable, with exception of Creatinine of 1.5, which was slightly elevated compared to 3+year old labs. Unclear if this is her new baseline or she has a mild JORDAN. Urine studies were not concerning for UTI. She was given IV fluids, had improvement of her renal function (Cr: 1.18), and was near her baseline the following day. Family was at bedside who agreed. I reached out to Dr. Garcia who was able to stop by her room as well and he reported patient was at baseline. She has a history of dementia and schizoprenia with occasional outbursts. PAtient did state she doesn't think she has been sleeping very well the last few nights, which could further exacerbate this. She was doing well, tolerating food, and deemed stable for discharge back to [facility]. Separate from above, Mirlande is on several medications that could contribute to this episode as well, however, it seems she has been fairly stable on these medications for quite some time. Recommend general review of her medications by her PCP an consideration of titrating down/off any that aren't an absolute necessity to minimize risk of polypharmacy. Currently, no change in medications. Physical Exam: GEN: Alert, awake, dementia HEENT: Normal conjunctiva, sclera anicteric CV: Regular rate and rhythm, no edema Pulm: Nonlabored respirations on room air, clear bilaterally ABD: Soft, nontender, nondistended Integumentary: No rashes Neuro: Normal speech, normal affect Vital Signs/Physical Exam: Temp Pulse Resp BP Pulse Ox 98.1 F 63 16 133/62 96 06/21/24 16:00 06/21/24 16:00 06/21/24 16:00 06/21/24 16:00 06/21/24 16:00 Laboratory Data at Discharge: WBC 9.40 thou/uL (4.3-10.9) 06/20/24 23:15 Hgb 12.9 g/dL (12.0-15.0) 06/20/24 23:15 Hct 38.5 % (36.0-45.0) 06/20/24 23:15 Plt Count 182 thou/uL (152-406) 06/20/24 23:15 Sodium 143 mEq/L (136-145) D 06/21/24 12:35 Potassium 4.2 mEq/L (3.5-5.1) 06/21/24 12:35 BUN 19 mg/dL (7-18) H 06/21/24 12:35 Creatinine 1.18 mg/dL (0.55-1.02) H 06/21/24 12:35 Glucose 160 mg/dL (74-106) H 06/21/24 12:35 Phosphorus 4.1 mg/dL (2.5-4.9) 06/21/24 09:18 Magnesium 2.3 mg/dL (1.6-2.4) 06/21/24 12:35 Total Bilirubin 0.2 mg/dL (0.2-1.0) 06/20/24 23:15 AST 14 U/L (15-37) L 06/20/24 23:15 ALT 19 U/L (13-56) 06/20/24 23:15 Alkaline Phosphatase 90 U/L (45-117) 06/20/24 23:15 Home Medications: Acetaminophen 500 mg PO QID PRN 06/21/24 Ascorbic Acid/Zinc [Zinc Lozenges] 1 ea PO Q2H PRN 06/21/24 Aspirin [Aspirin EC] 81 mg PO DAILY 06/21/24 Cetirizine HCl [Zyrtec*] 10 mg PO DAILY 06/21/24 Cranberry 450 mg PO DAILY 06/21/24 Dapagliflozin Propanediol [Farxiga] 5 mg PO DAILY 06/21/24 Dextran/Hypromellose/Glycerin [Artificial Tears 0.1-0.2-0.3%] 1 gtt OPTH BID 06/21/24 Docusate Sodium 100 mg PO BID 06/21/24 Docusate/Senna [Senokot-S*] 2 tab PO BEDTIME 06/21/24 Donepezil [Aricept*] 5 mg PO BEDTIME 06/21/24 Ferrous Sulfate [Ferrous Sulfate*] 325 mg PO DAILY 06/21/24 Finerenone [Kerendia] 10 mg PO DAILY 06/21/24 Fluticasone Propionate 2 spray IH DAILY PRN 06/21/24 Hydrocodone Bit/Acetaminophen [Elgin 10-325 Tablet] 1 tab PO Q12H PRN 06/21/24 Ibuprofen 600 mg PO TID PRN 06/21/24 Latanoprost Ophth [Xalatan 0.005%*] 1 gtt OPTH BEDTIME 06/21/24 Magnesium Oxide [Mag 0X*] 400 mg PO DAILY 06/21/24 Memantine HCl [Namenda Xr] 28 mg PO DAILY 06/21/24 Metformin HCl 500 mg PO BID 06/21/24 Multivitamin 1 tab PO DAILY 06/21/24 Risperidone [Risperdal] 2 mg PO BEDTIME 06/21/24 Ropinirole HCl [Requip*] 0.25 mg PO TID 06/21/24 Sumatriptan Succinate [Imitrex] 50 mg PO Q8H PRN 06/21/24 Topiramate [Topamax*] 100 mg PO BID 06/21/24 Trazodone [Desyrel*] 200 mg PO BEDTIME 06/21/24 risperiDONE [Risperdal] 1 mg PO DAILY 06/21/24 Physician Discharge Instructions: Patient was sent to ED from [facility] due to altered mentation - she reportedly was not feeling well, and began crying, and then yelling. In the ED, CT head, Chest x-ray, labwork was all rather unremarkable, with exception of Creatinine of 1.5, which was slightly elevated compared to 3+year old labs. Unclear if this is her new baseline or she has a mild JORDAN. Urine studies were not concerning for UTI. She was given IV fluids, had impr ovement of her renal function (Cr: 1.18), and was near her baseline the following day. Family was at bedside who agreed. I reached out to Dr. Garcia who was able to stop by her room as well and he repo rted patient was at baseline. She has a history of dementia and schizoprenia with occasional outbursts. PAtient did state she doesn't think she has been sleeping very well the last few nights, which could further exacerbate this. She was doing well, tolerating food, and deemed stable for discharge back to [facility]. Separate from above, Mirlande is on several medications that could contribute to this episode as well, however, it seems she has been fairly stable on these medications for quite some time. Recommend general review of her medications by her PCP an consideration of titrating down/off any that aren't an absolute necessity to minimize risk of polypharmacy. Currently, no change in medications. Followup: Marvin Garcia MD [Primary Care Provider] - Time spent managing pt's care (in minutes): 45
--- NOTE | 2024-06-22 12:51 | EKG ---
Test Date: 2024-06-20 Test Time: 22:13:05 Associate Software Engineer: JANINA MEASUREMENT RESULTS: Intervals: Rate: 60 WY: 166 QRSD: 90 QT: 420 QTc: 420 [place]: P: 53 W[place]: 166 QRS: -52 T: 11 INTERPRETIVE STATEMENTS: Normal sinus rhythm Left anterior fascicular block Possible Anterior infarct, age undetermined Abnormal ECG Compared to ECG 07/11/2017 12:58:31 Left anterior fascicular block now present Myocardial infarct finding now present T-wave abnormality no longer present Electronically Signed On 06-22-24 12:47:49 CDT by Holger Rdz
== END 2024-06-21 18:28 ==
LOC: ER 21:25 → ERHOLD 06-21 01:56 → 4TH 06-21 04:42
PROVIDERS: ADMIT Internal Medicine; ATTEND Hospitalist
DX: R41.82 Altered mental status, unspecified (principal); G30.9 Alzheimer's disease, unspecified; F02.80 Dementia in other diseases classified elsewhere, unspecified severity, without behavioral disturbance, psychotic disturbance, mood disturbance, and anxiety; N17.9 Acute kidney failure, unspecified; F41.9 Anxiety disorder, unspecified; I89.0 Lymphedema, not elsewhere classified; E11.22 Type 2 diabetes mellitus with diabetic chronic kidney disease; I12.9 Hypertensive chronic kidney disease with stage 1 through stage 4 chronic kidney disease, or unspecified chronic kidney disease; N18.30 Chronic kidney disease, stage 3 unspecified; F20.9 Schizophrenia, unspecified; E66.01 Morbid (severe) obesity due to excess calories; D64.9 Anemia, unspecified; Z79.82 Long term (current) use of aspirin; Z88.0 Allergy status to penicillin; Z88.5 Allergy status to narcotic agent; Z88.8 Allergy status to other drugs, medicaments and biological substances; Z68.35 Body mass index [BMI] 35.0-35.9, adult
CPT/HCPCS: 85025; 81001; 80048 ×2; 36415; 82140; 83735 ×3; 84100; 82947 ×3; 80076; 84484; 80307; 70450; 71045; 80143; 80179; J1650; J7799; J7030; 93005; 96360; 96361; 99285; G0378